=== PATIENT | female | born 1960 | race Caucasian/White ===

== ENCOUNTER 2021-02-28 14:37 | Emergency (ER) | END 2021-02-28 17:45 | disposition left against medical advice (07) | LOC: ERS 14:37 ==

== ENCOUNTER 2023-01-03 22:34 | Emergency (ER) | payer OTHER ==
[2023-01-03 23:03] LABS: #Eosinphils 0.3 thou/uL (0.0-0.7); #Monocytes 0.8 thou/uL (0.11-0.59); #Neutrophils 4.7 thou/uL (1.40-6.50); %Basophils 0.4 % (0.0-1.0); %Eosinophils 3.8 % (0.0-10.0); %Lymphocytes 26.4 % (21.0-51.0); %Monocytes 9.5 % (0.0-10.0); %Neutrophils 58.6 % (42.0-75.0); Hemoglobin 9.8 g/dL (12.0-16.0); Mean Corpuscular HGB CONC 31.8 g/dL (32.0-36.0); Mean Corpuscular Hemoglobin 29.4 pg (27.0-31.0); Mean Corpuscular Volume 92.5 fl (78.0-98.0); Mean Platelet Volume 12.2 fL (7.4-10.4); Platelet Count 223 10x3/uL (130-400); RBC Distribution Width 14.7 % (11.5-14.5); Red Blood Cell (RBC) Count 3.33 mill/uL (4.20-5.40)
[2023-01-03 23:44] LABS: Anion Gap 18 mmol/L (10-20); Carbon Dioxide 21 mmol/L (23-31); Chloride 109 mmol/L (98-107); Potassium 4.8 mmol/L (3.5-5.1); Sodium 143 mmol/L (136-145)
[2023-01-03 23:45] LABS: Albumin 3.6 g/dL (3.4-4.8); Bilirubin, Total 0.3 mg/dL (0.2-1.2); Calcium 7.9 mg/dL (7.6-10.4); Globulin 2.1 g/dL (2.4-3.5); Glucose 88 mg/dL (80-115); Protein, Total 5.7 g/dL (5.8-8.1)
[2023-01-03 23:46] LABS: Alkaline Phosphatase 94 U/L (40-110)
[2023-01-03 23:48] LABS: AST (SGOT) 15 U/L (5-34); BUN (Urea Nitrogen) 13 mg/dL (9.8-20.1); Calc. Creatinine Clearance 0 mL/min (70-130); Estimated GFR 71
[2023-01-03 23:49] LABS: ALT (SGPT) 19 U/L (8-55)
[2023-01-03 23:55] LABS: Bacteria/HPF None Seen HPF (None Seen); Bilirubin Negative (Negative); Blood, Urine 3+ (Negative); CAUTI Indications for Culture Acute Hematuria; Clarity Clear (Clear); Glucose, Urine (Dipstick) Normal (Negative); Ketone, Urine Negative (Negative); Leukocyte 250 Leu/uL (Negative); Nitrite Negative (Negative); Protein, Urine (Dipstick) 50 mg/dL (Neg-Trace); RBC/HPF Greater than 50 HPF (0-3); Specific Gravity, Urine 1.031 (1.002-1.036); Squamous Epithelial 0-3 HPF (0-3); Urobilinogen 3 mg/dL (Less than 2); WBC/HPF Greater than 50 HPF (0-3); pH, Urine 6.5 (5.0-9.0)
[2023-01-03 23:58] LABS: Urine Culture Reflex Yes Yes
[2023-01-04] MEDS ORDERED: Ciprofloxacin 500 MG TAB ONE (00:32)
[2023-01-04] MEDS ORDERED: Nitrofurantoin Macrocrystal 50 MG CAP PO SCH (00:45)
== END 2023-01-03 23:44 | disposition home or self-care (01) ==
LOC: ERS 22:34
DX: N39.0 Urinary tract infection, site not specified (principal); K94.23 Gastrostomy malfunction
CPT/HCPCS: 51701; 71045; 80053; 81001; 83605; 85025; 87086; 93005

== ENCOUNTER 2023-10-24 12:28 | Outpatient (CLI) | payer OTHER | END 2023-10-24 12:29 | disposition home or self-care (01) | LOC: ULT 12:28 | PROVIDERS: ATTEND Internal Medicine Critical Care Medicine | DX: J44.9 Chronic obstructive pulmonary disease, unspecified (principal); I08.1 Rheumatic disorders of both mitral and tricuspid valves | CPT/HCPCS: 93306 ==

== ENCOUNTER 2024-02-08 09:53 | Emergency (ER) | payer MEDICARE, OTHER, MEDICAID ==
[2024-02-08] MEDS ORDERED: Ondansetron PF 4 MG/2 ML Vial ONE (10:48)
[2024-02-08] MEDS ORDERED: Famotidine/PF 20 mg/2ml Vial ONE (10:49)
[2024-02-08 11:20] LABS: ALT (SGPT) 40 U/L (8-55); AST (SGOT) 18 U/L (5-34); Albumin 3.2 g/dL (3.4-4.8); Alkaline Phosphatase 108 U/L (40-110); Anion Gap 11 mmol/L (10-20); BUN (Urea Nitrogen) 25 mg/dL (9.8-20.1); Bilirubin, Total 0.2 mg/dL (0.2-1.2); Calc. Creatinine Clearance 0 mL/min (70-130); Calcium 8.1 mg/dL (7.8-10.44); Carbon Dioxide 22 mmol/L (23-31); Chloride 111 mmol/L (98-107); Estimated GFR 58; Globulin 2.5 g/dL (2.4-3.5); Glucose 85 mg/dL (80-115); Lipase 14 U/L (8-78); Potassium 4.6 mmol/L (3.5-5.1); Protein, Total 5.7 g/dL (5.8-8.1); Sodium 139 mmol/L (136-145)
[2024-02-08 11:33] LABS: Troponin I Less than 0.010 ng/mL (< 0.028)
[2024-02-08] MEDS ORDERED: Ketorolac Tromethamine 30 MG (1 mL) VIAL ONE (12:07)
[2024-02-08] MEDS ORDERED: Morphine 4 MG/ML VIAL ONE (12:08)
[2024-02-08 12:34] LABS: Bacteria/HPF None Seen HPF (None Seen); Bilirubin Negative (Negative); Blood, Urine Negative (Negative); CAUTI Indications for Culture Dysuria,urgency,freq; Clarity Clear (Clear); Glucose, Urine (Dipstick) Normal (Negative); Ketone, Urine Negative (Negative); Leukocyte Negative Leu/uL (Negative); Nitrite Negative (Negative); Protein, Urine (Dipstick) Negative (Neg-Trace); RBC/HPF 0-3 HPF (0-3); Specific Gravity, Urine 1.031 (1.002-1.036); Squamous Epithelial 0-3 HPF (0-3); Urobilinogen Normal mg/dL (Less than 2); WBC/HPF 0-3 HPF (0-3); pH, Urine 6.5 (5.0-9.0)
[2024-02-08 12:40] LABS: Urine Culture Reflex No No
[2024-02-08 12:56] LABS: #Basophils 0.05 10x3/uL (0.0-0.2); %Basophils 0.5 % (0.0-1.0); %Eosinophils 2.7 % (0.0-10.0); %Lymphocytes 23.6 % (21.0-51.0); %Monocytes 7.5 % (0.0-10.0); Hematocrit 33.8 % (36.0-47.0); Hemoglobin 10.4 g/dL (12.0-16.0); Mean Corpuscular HGB CONC 30.8 g/dL (32.0-36.0); Mean Corpuscular Hemoglobin 28.2 pg (27.0-31.0); Mean Corpuscular Volume 91.6 fL (78.0-98.0); Platelet Count 161 10x3/uL (130-400); RBC Distribution Width 14.1 % (11.5-14.5); Red Blood Cell (RBC) Count 3.69 mill/uL (4.20-5.40)
[2024-02-08] MEDS ORDERED: Iopamidol-370 76% 500 ML MDV (1 ML CHARGE) ONE (13:02)
== END 2024-02-08 13:14 | disposition home or self-care (01) ==
LOC: ERS 09:53
DX: K59.00 Constipation, unspecified (principal); Z55.6 Problems related to health literacy; I10 Essential (primary) hypertension; J44.9 Chronic obstructive pulmonary disease, unspecified; Z90.49 Acquired absence of other specified parts of digestive tract
CPT/HCPCS: 71045; 74177; 80053; 81001; 83690; 84484; 85025; 85379; 93005; 96361; 96374; 96375; 99284; J1885; J2272; J2405; J3490; Q9967; 36415; 82274

== ENCOUNTER 2025-01-10 08:48 | Emergency (ER) | payer OTHER, MEDICAID ==
[2025-01-10 09:46] LABS: #Basophils 0.04 10x3/uL (0.0-0.2); #Eosinophils 0.36 10x3/uL (0.0-0.7); #Monocytes 0.77 10x3/uL (0.11-0.59); #Neutrophils 4.78 10x3/uL (1.40-6.50); %Basophils 0.5 % (0.0-1.0); %Eosinophils 4.3 % (0.0-10.0); %Lymphocytes 28.0 % (21.0-51.0); %Monocytes 9.2 % (0.0-10.0); %Neutrophils 56.9 % (42.0-75.0); Hematocrit 33.2 % (36.0-47.0); Hemoglobin 10.4 g/dL (12.0-16.0); Mean Corpuscular Hemoglobin 24.9 pg (27.0-31.0); Mean Corpuscular Volume 79.6 fL (78.0-98.0); Platelet Count 238 10x3/uL (130-400); Red Blood Cell (RBC) Count 4.17 mill/uL (4.20-5.40); White Blood Cell (WBC) Count 8.39 10x3/uL (4.8-10.8)
[2025-01-10 10:06] LABS: ALT (SGPT) 17 U/L (Less than 34); AST (SGOT) 27 U/L (11-34); Albumin 4.2 g/dL (3.1-4.5); Alkaline Phosphatase 106 U/L (40-110); Anion Gap 15 mmol/L (10-20); BUN (Urea Nitrogen) 25 mg/dL (9.8-20.1); Bilirubin, Total 0.3 mg/dL (0.3-1.2); Calc. Creatinine Clearance 0 mL/min (70-130); Calcium 8.9 mg/dL (7.8-10.44); Carbon Dioxide 22 mmol/L (23-31); Chloride 103 mmol/L (98-107); Globulin 2.6 g/dL (2.4-3.5); Glucose 101 mg/dL (80-115); Potassium 4.6 mmol/L (3.5-5.1); Sodium 135 mmol/L (136-145)
[2025-01-10 10:38] LABS: Troponin I Less than 0.010 ng/mL (< 0.028)
[2025-01-10 11:00] LABS: CAUTI Indications for Culture Dysuria,urgency,freq; Glucose, Urine (Dipstick) Normal (Negative); Leukocyte Negative Leu/uL (Negative); Protein, Urine (Dipstick) Negative (Neg-Trace); RBC/HPF 0-3 HPF (0-3); Specific Gravity, Urine 1.008 (1.002-1.036); WBC/HPF 0-3 HPF (0-3)
[2025-01-10 11:01] LABS: Bacteria/HPF 1+ HPF (None Seen)
[2025-01-10 11:02] LABS: Urine Culture Reflex No No
[2025-01-10] MEDS ORDERED: Ketorolac Tromethamine 30 MG (1 mL) VIAL ONE (11:17)
== END 2025-01-10 11:27 | disposition home or self-care (01) ==
LOC: ERS 08:48
DX: J44.1 Chronic obstructive pulmonary disease with (acute) exacerbation (principal); M25.562 Pain in left knee; I10 Essential (primary) hypertension
CPT/HCPCS: 71046; 80053; 81001; 83880; 84484; 85025; 93005; 94640; 96374; 96375; J1885; J2919; J7620